=== PATIENT | female | born 1955 | race Caucasian/White ===

== ENCOUNTER 2018-03-25 05:50 | Day surgery (SDC) | payer OTHER ==
--- NOTE | 2018-03-18 11:20 | HP ---
AMENDED REPORT NOW INCLUDES COSIGNER DESIGNATION - ESIGNED BEFORE ADJUSTMENT HISTORY AND PHYSICAL: DATE OF OFFICE VISIT: 03/15/18 DATE OF SURGERY: 03/25/18 SURGEON: Mariaa Meeks MD * (DICTATED BY SAMIRA OG) PROCEDURE: Left knee arthroscopy with partial medial meniscectomy, possible chondroplasty, possible synovectomy. CHIEF COMPLAINT: Left knee pain. HISTORY OF PRESENT ILLNESS: Ms. Thompson is a 63-year-old female with complaints of left knee pain and MRI confirms a medial meniscus tear. She has failed conservative treatment and elected to proceed with left knee arthroscopy with partial medial meniscectomy. PAST MEDICAL HISTORY: Migraines. PAST SURGICAL HISTORY: D and C and colonoscopy. CURRENT MEDICATIONS: 1. Voltaren gel. 2. Ibuprofen. 3. Tramadol. ALLERGIES: CECLOR. FAMILY HISTORY: Prostate cancer, diabetes, CHF, and leukemia. SOCIAL HISTORY: She is a 63-year-old female. She lives alone. She does not smoke or use drugs. Uses occasional alcohol. REVIEW OF SYSTEMS: A complete 14-point review of systems was reviewed with the patient, it was all negative or noncontributory. PHYSICAL EXAMINATION GENERAL: She is well developed, well nourished, in no acute distress. VITAL SIGNS: She stands 5 feet 6 inches tall, weighs 187 pounds. Her blood pressure is 130/80 and her heart rate is 76. HEENT: Normocephalic, atraumatic. NECK: Supple. No palpable lymph nodes. PULMONARY: The lungs are clear to auscultation bilaterally. The abdomen is soft, nontender, nondistended. CARDIO: Regular rate and rhythm. Strong S1, S2. NEUROLOGIC: She is alert and oriented x3. Cranial nerves II through XII are intact. MUSCULOSKELETAL: Left lower extremity skin is intact. There are no open wounds or abrasions. She has a mild joint effusion. She has tenderness over the medial joint line. Positive Gifty's. Negative Carly's. Range of motion 0 to 125 degrees. 2+ dorsalis pedis pulses. Her lower extremity muscle group strengths are intact at 5/5 and she has intact sensation. ASSESSMENT AND PLAN: Ms. Thompson is a 63-year-old female with continued complaints of left knee pain. She has failed conservative management and MRI confirms a medial meniscus tear. She has elected to proceed with left knee arthroscopy with partial medial meniscectomy, possible chondroplasty, and possible synovectomy. The surgery is scheduled for 03/25/[address] Meeks discussed the risks and benefits of the surgery at today's visit and all of her questions were answered. She will follow up with Dr. Meeks in 2 weeks after the surgery. SAMIRA OG [id number]/[facility] #: [id number] MTDD
[~2018-03-25 05:50] MED LIST: Buffered Lidocaine 0.9% SYRIN* 5 ML/SYR SYRINGE INTRADERM ONE
[2018-03-25] MEDS ORDERED: ceFAZolin 2 GM PREMIX (*) 2 GM/50 ML BAG IVPB ONE (05:54)
[2018-03-25] MEDS ORDERED: Famotidine TAB* 20 MG ONE (05:54)
[2018-03-25] MEDS ORDERED: Dexamethasone IV* 4 MG/ML 1 ML (4 MG) ONE (05:54)
[2018-03-25] MEDS ORDERED: Buffered Lidocaine 0.9% SYRIN* 5 ML/SYR SYRINGE ONE (05:54)
[2018-03-25] MEDS ORDERED: Dexamethasone IV* 4 MG/ML 1 ML (4 MG) IV SLOW PU ONE (06:00)
[2018-03-25] MEDS ORDERED: Famotidine TAB* 20 MG PO ONE (06:00)
[2018-03-25] MEDS ORDERED: fentaNYL* 50 MCG/ML 2 ML VIAL (100 MCG VIAL) ONE (07:05)
[2018-03-25] MEDS ORDERED: Midazolam* 1 MG/ML 5 ML VIAL (5 MG) ONE (07:06)
[2018-03-25] MEDS ORDERED: EPINEPHRINE 1 MG/ML 1 ML VIAL ONE (07:13)
[2018-03-25] MEDS ORDERED: methylPREDNISolone ACETATE 80* 80 MG/ML 1 ML VIAL ONE (07:14)
[2018-03-25] MEDS ORDERED: Bupivacaine 0.25% SDV* 30 ML ONE (07:14)
[2018-03-25] MEDS ORDERED: Chloroprocaine 2%* 20 ML VIAL ONE (07:16)
[2018-03-25] MEDS ORDERED: Ondansetron INJ* 2 MG/ML VIAL ONE (07:16)
[2018-03-25] MEDS ORDERED: Ketorolac INJ* 30 MG/ML 1 ML VIAL ONE (07:16)
[2018-03-25] MEDS ORDERED: Propofol* 10 MG/ML 20 ML BTL IV PUSH ONE (07:16)
[2018-03-25] MEDS ORDERED: DiMENhydriNATE IV* 50 MG/ML VIAL IV PUSH PRN (07:57)
[2018-03-25] MEDS ORDERED: Naloxone* 0.4 MG/ML 1 ML VIAL IV PRN (07:57)
[2018-03-25] MEDS ORDERED: oxyCODONE/Acetamin 5/325 MG* TAB PO PRN (07:57)
[2018-03-25] MEDS ORDERED: fentaNYL* 50 MCG/ML 2 ML VIAL (100 MCG VIAL) IV PRN (07:57)
[2018-03-25] MEDS ORDERED: HYDROmorphone INJ* 1 MG/ML CARPUJECT SYRINGE IV PRN (07:57)
[2018-03-25] MEDS ORDERED: Ondansetron INJ* 2 MG/ML VIAL IV PRN (07:57)
[2018-03-25] MEDS ORDERED: oxyCODONE/Acetamin 5/325 MG* TAB ONE (10:47)
[2018-03-25 10:53] VITALS: BP 136/91
--- NOTE | 2018-03-25 22:55 | OP ---
OPERATIVE REPORT: DATE OF OPERATION: 03/25/18 - [facility] DATE OF : 57 SURGEON: Mariaa Meeks MD INSOLE TACK PULLER HAND: SAMIRA Daniels Ms. Euceda did help throughout the procedure with preparation of the leg, wound retraction, manipulation of the knee, and wound closure. ANESTHESIOLOGIST: Dr. Nova. ANESTHESIA: General. PRE-OP DIAGNOSES: Left knee medial meniscal tear, [id number] osteoarthritis. POST-OP DIAGNOSES: Left knee anteromedial meniscal tear, radial tear of the lateral meniscus, moderate degenerative osteoarthritis of the medial and patellofemoral compartments. OPERATIVE PROCEDURE: Left knee arthroscopy with partial medial meniscectomy and partial lateral meniscectomy. COMPLICATIONS: None. ESTIMATED BLOOD LOSS: Less than 25 cc. SPECIMEN: None. BRIEF HISTORY/INDICATIONS: Ms. Thompson is a 63-year-old female who has had acute left knee pain since a traumatic twisting injury in August of 2017. She developed mechanical symptoms and MRI confirmed medial meniscal tear. Due to failure of conservative treatment, she elected to undergo left knee arthroscopy with partial medial meniscectomy, possible chondroplasty, possible synovectomy. Informed consent was obtained from the patient. She understood the risks and benefits of surgery included, but were not limited to bleeding, infection, damage to nearby structures, continued pain, need for further surgery, retear of the meniscus, stroke, heart attack, blood clot, and . She wished to proceed. INTRAOPERATIVE FINDINGS: Intraoperatively, the patient was noted to have grade 3 and 4 Outerbridge cartilage changes in both the medial and patellofemoral compartments. She had a radial tear in the mid portion of the lateral meniscus. She had a large displaced radial tear in the anterior portion of the medial meniscus. DESCRIPTION OF PROCEDURE: Ms. Thompson was identified in the preanesthesia unit. Her left lower extremity was marked as the correct operative side. Informed consent was signed and placed in the chart. The patient was taken to the operating room and placed under anesthesia. Left lower extremity was prepped and draped in the usual sterile fashion. Preop time-out was made to correctly identify the patient's side and site. Appropriate perioperative antibiotics were given within 1 hour of incision. A standard 0.5 cm anterolateral portal incision was made with a 15 blade and carried down through the capsule. Trocar was introduced. As soon as the light and water sources were turned on, there was immediate visualization of the suprapatellar pouch. A tour of the knee joint was performed. Suprapatellar pouch had no obvious abnormalities. Patellofemoral compartments showed some grade 3 and 4 Outerbridge cartilage changes with exposed subchondral bone and cartilage fraying. Medial gutters showed some inflammatory tissue, but no loose body. Medial compartment showed grade 3 and 4 Outerbridge cartilage changes along the medial femoral condyle. There was a displaced anterior and medial meniscus tear, which was radial and involved the white-red and red-red zone. ACL and PCL appeared to be intact. The knee was placed in the figure-of- four position. There was some grade 2 and 3 Outerbridge cartilage changes affecting the lateral tibial plateau. There was a radial tear in the mid portion of the lateral meniscus involving the white-red zone. No obvious loose body or plica in the lateral compartment. Under direct visualization, a medial portal incision was made. Probe was introduced and a second tour of the knee joint was performed. No additional findings were noted. Shaver and radiofrequency ablation wand were used to clear inflammatory soft tissue from the anterior joint line. This greatly improved visualization. A shaver and radiofrequency ablation wand were used to perform partial medial meniscectomy along the anterior radial tear. A smooth border of the meniscus was obtained. Further probing of the meniscus showed no obvious additional tears. Next, the knee was placed in a [id number] position. Straight biter and shaver were used to perform a partial lateral meniscectomy. This was performed in the white-red zone. A smooth border was obtained. The knee was copiously irrigated with sterile saline. All instruments were removed. The incisions were closed using interrupted 3-0 nylon suture. An intra- articular injection of 80 mg of Depo-Medrol and 6 cc of 0.25% Marcaine was placed in the knee joint. Patient's incisions were covered with Xeroform, 4x4s and Webril. The Anatoliy wrap and cold pack were placed over this. Patient's anesthesia was reversed without difficulty. She was taken to the PACU in stable condition. Intended weightbearing will be weightbearing as tolerated. Intended DVT prophylaxis will be aspirin. [id number]/[facility] #: [id number] [facility]
== END 2018-03-25 11:00 | disposition home or self-care (01) ==
LOC: OR 05:50
PROVIDERS: ATTEND Orthopaedic Surgery Adult Reconstructive Orthopaedic Surgery
DX: S83.242A Other tear of medial meniscus, current injury, left knee, initial encounter (principal); S83.282A Other tear of lateral meniscus, current injury, left knee, initial encounter; Y92.9 Unspecified place or not applicable; X50.0XXA Overexertion from strenuous movement or load, initial encounter; G43.909 Migraine, unspecified, not intractable, without status migrainosus
CPT/HCPCS: A9270-GY; J0690; J1040; J1100; J1885; J2250; J2400; J2405; J2704; J3010

== ENCOUNTER 2018-04-04 22:30 | Observation (INO) | payer OTHER ==
[2018-04-04 23:49] LABS: ABS Basophils 0 10^3/ul (0-0.2); ABS Eosinophils 0.2 10^3/ul (0-0.6); ABS Lymphocytes 1.9 10^3/ul (1.0-4.8); ABS Monocytes 0.7 10^3/ul (0-0.8); ABS Neutrophils 6.9 10^3/ul (1.5-7.7); ABS Nucleated RBC 0 10^3/ul; Eosinophil % 1.7 % (0-6); Hematocrit 40 % (35-47); Hemoglobin 13.5 g/dl (12.0-16.0); Lymphocyte % 19.9 % (25-47); Mean Corpuscular HGB Conc 34 g/dl (31-36); Mean Corpuscular Hemoglobin 31 pg (27-31); Mean Corpuscular Volume 91 fL (80-97); Nucleated Red Blood Cells % 0; Platelet Count 208 10^3/ul (150-450); Red Blood Count 4.41 10^6/ul (4.0-5.4); Red Cell Distribution Width 13 % (10.5-15); White Blood Count 9.8 10^3/ul (3.5-10.8)
[2018-04-04 23:57] LABS: INR 0.91 (0.77-1.02)
[2018-04-05 00:15] LABS: EGFR Non-African American 67.8 (>60)
[2018-04-05] MEDS ORDERED: Iohexol 350* (CONTRAST) 500 ML MDV IV ONE (01:08)
[2018-04-05] MEDS ORDERED: Morphine VIAL* 4 MG/ML VIAL (1 ml vial) IV ONE ×2 (01:17→01:18)
[2018-04-05] MEDS ORDERED: Ondansetron ODT TAB* 4 MG ONE (01:17)
[2018-04-05] MEDS ORDERED: Ondansetron TAB* 4 MG PO ONE (01:17)
[2018-04-05] MEDS ORDERED: Enoxaparin(*) 100 MG/ML SYR SUBCUT ONE (02:05)
--- NOTE | 2018-04-05 02:48 | ED ---
Isa Lucas Rebecca, scribed for Juanita Chiu MD on 04/04/18 at 2253 . HPI Chest Pain - HPI Summary HPI Summary: Pt is a 63 y/o F who presents to ED c/o CP. Pain began yesterday afternoon and has been intermittent since onset. Pain is located diffusely throughout the chest, worse on the left side, and described as tightness and uncomfortable. Pain is currently mild, ranked 3/10. Sx aggravated by deep breaths, alleviated by nothing. Additionally c/o subjective fever. Denies cough, SOB. PSHx knee surgery [address] Meeks. - History of Current Complaint Chief Complaint: EDChestPainROMI Time Seen by Provider: 04/04/18 22:48 Hx Obtained From: Patient Onset/Duration: Started Days Ago - Yesterday, Still Present Timing: Intermittent Current Severity: Mild Pain Intensity: 3 Pain Scale Used: 0-10 Numeric Chest Pain Location: Diffuse - Worse on the left side Character: Tightness, Other: - Uncomfortable Aggravating Factor(s): Deep Breaths Alleviating Factor(s): Nothing Associated Signs and Symptoms: Positive: Fever. Negative: Shortness of Breath, Cough - Allergy/Home Medications Allergies/Adverse Reactions: Allergies Allergy/AdvReac Type Severity Reaction Status Date / Time Adhesive Tape Allergy Rash Verified 04/04/18 22:43 amoxicillin [From Augmentin] Allergy GI Upset Verified 04/04/18 22:43 cefaclor [From Ceclor] Allergy Hives Verified 04/04/18 22:43 clavulanic acid Allergy GI Upset Verified 04/04/18 22:43 [From Augmentin] Home Medications: Home Medications Aspirin 325 MG TAB* 1 tab PO DAILY 04/04/18 [History Confirmed 04/04/18] Percocet 5-325 mg Tablet 1 tab PO Q6HR PRN 04/04/18 [History Confirmed 04/04/18] PMH/Surg Hx/FS Hx/Imm Hx Endocrine/Hematology History: Denies: Hx Diabetes Cardiovascular History: Denies: Hx Hypertension, Hx Pacemaker/ICD History: Denies: Hx Renal Disease Musculoskeletal History: Reports: Hx Arthritis - KNEES, Other Musculoskeletal History - LEFT KNEE PAIN Sensory History: Reports: Hx Contacts or Glasses - GLASSES Denies: Hx Hearing Aid Opthamlomology History: Reports: Hx Contacts or Glasses - GLASSES Neurological History: Reports: Hx Migraine - HISTORY OF Psychiatric History: Denies: Hx Panic Disorder - Cancer History Hx Chemotherapy: No Hx Radiation Therapy: No - Surgical History Surgery Procedure, Year, and Place: D&C 05/2015 Hx Anesthesia Reactions: No Infectious Disease History: No Infectious Disease History: Denies: Hx Clostridium Difficile, Hx Hepatitis, Hx Human Immunodeficiency Virus (HIV), Hx of Known/Suspected MRSA, Traveled Outside the [place] in Last 30 Days - Family History Known Family History: Positive: Diabetes, Other - Prostate CA, CHF - Social History Alcohol Use: Occasionally Substance Use Type: Reports: None Smoking Status (MU): Never Smoked Tobacco Have You Smoked in the Last Year: No Review of Systems Positive: Fever Positive: Chest Pain Negative: Shortness Of Breath, Cough All Other Systems Reviewed And Are Negative: Yes Physical Exam - Summary Physical Exam Summary: VITAL SIGNS: Reviewed. GENERAL: ~Patient is a well-developed and nourished female who is lying comfortable in the stretcher. Patient is not in any acute respiratory distress. HEAD AND FACE: No signs of trauma. No ecchymosis, hematomas or skull depressions. No sinus tenderness. EYES: PERRLA, EOMI x 2, No injected conjunctiva, no nystagmus. EARS: Hearing grossly intact. Ear canals and tympanic membranes are within normal limits. MOUTH: Oropharynx within normal limits. NECK: Supple, trachea is midline, no adenopathy, no JVD, no carotid bruit, no c- spine tenderness, neck with full ROM. CHEST: Symmetric, no tenderness at palpation LUNGS: Clear to auscultation bilaterally. No wheezing or crackles. CVS: Regular rate and rhythm, S1 and S2 present, no murmurs or gallops appreciated. ABDOMEN: Soft, non-tender. No signs of distention. No rebound no guarding, and no masses palpated. Bowel sounds are normal. EXTREMITIES: FROM in all major joints, no edema, no cyanosis or clubbing. NEURO: Alert and oriented x 3. No acute neurological deficits. Speech is normal and follows commands. SKIN: Dry and warm Triage Information Reviewed: Yes Vital Signs On Initial Exam: Initial Vitals Temp Pulse Resp BP Pulse Ox 97.3 F 81 18 159/78 97 04/04/18 22:40 04/04/18 22:40 04/04/18 22:40 04/04/18 22:40 04/04/18 22:40 Vital Signs Reviewed: Yes Diagnostics - Vital Signs Vital Signs Temp Pulse Resp BP Pulse Ox 04/04/18 22:40 97.3 F 81 18 159/78 97 - Laboratory Result Diagrams: 04/04/18 23:41 04/04/18 23:40 Lab Statement: Any lab studies that have been ordered have been reviewed, and results considered in the medical decision making process. - Radiology CXR Radiology Interpretation Completed By: ED Physician - Elevation of the left hemidiaphragm. Pending official report. - CT CTA Chest CT Interpretation: Positive (See Comments) - Moderate-sized bilateral pulmonary emboli with suspected lingular infarct, but no saddle embolism. ED physician reviewed this radiology report. Pending official report. CT Interpretation Completed By: Radiologist - EKG 2228 Cardiac Rate: NL - 88 bpm EKG Rhythm: Sinus Rhythm EKG Interpretation: Normal axis. Normal interval. No ischemic changes. Re-Evaluation - Re-Evaluation First Eval Re-Evaluation Time: 00:20 Comment: Explained that the pt will be getting a CTA done. Second Eval Re-Evaluation Time: 02:07 Change: Improved Comment: Discussed CTA results with the pt. Symptoms improved with the pain medication. Chest Pain Course/Dx - Course Assessment/Plan: Pt is a 63 y/o F who presents to ED c/o CP since yesterday afternoon, intermittent since onset. Pain is located diffusely throughout the chest, worse on the left side, and described as tightness. Pain is currently mild, ranked 3/10. Sx aggravated by deep breaths, alleviated by nothing. Additionally c/o subjective fever. Denies cough, SOB. PSHx knee surgery [address] Meeks. Blood work was done. D-dimer of 835. CXR reveals elevation of the lef themidiaphragm. CTA chest reveals bilateral PE. EKG is sinus rhythm with no ischemic changes. In the ED course, pt received Lovenox, morphine and zofran which improved symptoms. Discussed care of pt with Dr. Paul who accepts pt for admission. Pt will be admitted with Dx of pulmonary embolism. Allergies noted. - Diagnoses Provider Diagnoses: Pulmonary embolism - Provider Notifications Discussed Care Of Patient With: Radiology Time Discussed With Above Provider: 02:04 Instructed by Provider To: Other - Reporting radiological findings of PE. Discussed care of pt with Dr. Paul at 0212 who accepts pt for admission. Discharge - Sign-Out/Discharge Documenting (check all that apply): Discharge/Admit/Transfer - Admit - Discharge Plan Condition: Fair Disposition: ADMITTED TO [facility] Referrals: No Primary Care Phys,NOPCP [Medical Doctor] - The documentation as recorded by the Isa mckenna Rebecca accurately reflects the service I personally performed and the decisions made by , Juanita Chiu MD.
[2018-04-05] MEDS ORDERED: oxyCODONE/Acetamin 5/325 MG* TAB PO PRN (03:32)
[2018-04-05] MEDS ORDERED: ONDANSETRON IV PRN (03:32)
[2018-04-05] MEDS ORDERED: Morphine VIAL* 4 MG/ML VIAL (1 ml vial) IV PRN (03:32)
[2018-04-05] MEDS ORDERED: Magnesium Hydroxide LIQ* 30 ML UDC PO PRN (03:32)
[2018-04-05] MEDS ORDERED: Senna TAB PO PRN (03:32)
[2018-04-05] MEDS ORDERED: Al Hydrox/Mg Hydrox/Simet LIQ* 30 ML UDC PO PRN (03:32)
[2018-04-05] MEDS ORDERED: Docusate CAP* 100 MG PO PRN (03:32)
[2018-04-05] MEDS: Acetaminophen TAB* 325 MG PO PRN ×2 (04:34→11:01)
--- NOTE | 2018-04-05 06:44 | HP ---
HISTORY AND PHYSICAL: DATE OF ADMISSION: 04/05/18 TIME OF EVALUATION: 0300 PRIMARY CARE PHYSICIAN: CAIO Osborn. CHIEF COMPLAINT: Chest pain and shortness of breath. HISTORY OF PRESENT ILLNESS: This is a 63-year-old female who recently underwent knee arthroscopy on 03/25/18. She was sent home on a full dose of aspirin for prophylaxis. 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 She states that she was getting around and not having issues with immobility when she states on the afternoon of 04/03/18 she began having chest pain. Last evening on 04/04/18 she began having chest pain and shortness of breath. Initially, she thought it was heartburn, but then was concerned that she was having a heart attack. She was having a pleuritic pain and persistent pain on the left side. Last night, she broke up into night sweats and she has been having some diarrhea. No nausea or vomiting. No abdominal pain or urinary symptoms. No history of blood clot in the past. In the emergency room, the patient had labs and imaging. She was found to have bilateral pulmonary embolism. She was given Lovenox 90 mg subcu, morphine 4 mg and Zofran 8 mg and was referred to the hospitalist service for further evaluation. PAST MEDICAL HISTORY: 1. Arthritis, history of left knee arthroscopy with partial medial meniscectomy and partial lateral meniscectomy on 03/25/18. 2. History of D and C. MEDICATIONS: 1. Ibuprofen as needed. 2. Tylenol as needed. 3. Percocet as needed. 4. Aspirin 325 mg daily. 5. Tramadol 50 mg q.6 hours as needed. ALLERGIES: ADHESIVE TAPE, AMOXICILLIN, CEFACLOR, and CLAVULANIC ACID. FAMILY HISTORY: No family history of blood clotting disorder. SOCIAL HISTORY: She lives alone, but her significant other, Devin Madison visits her 4 to 5 days of the week. She denies smoking. She drinks 2 to 3 per week wine. Her healthcare proxy are her two daughters. CODE STATUS: Full code. REVIEW OF SYSTEMS: A 14-point review of systems as mentioned in the HPI, otherwise negative. PHYSICAL EXAMINATION GENERAL: No acute distress, resting comfortably with her significant other at the bedside. VITAL SIGNS: Temp 97.3, pulse rate 77, respiratory rate 18, oxygen saturation 93 % on room air, blood pressure 120/73. HEENT: Head: Normocephalic. Pupils equal and reactive. Anicteric. Oropharynx: Mucous membranes are moist. NECK: Supple. No lymphadenopathy. No nuchal rigidity. RESPIRATORY: Shallow breath sounds, diminished. No wheezes, rhonchi or rales. CARDIAC: Regular rate and rhythm. Systolic murmur most prominent at the right sternal base. ABDOMEN: Soft, nontender, nondistended. EXTREMITIES: Some subtle swelling in her left lower extremity. She has a bandage on her left knee. There is no surrounding erythema or drainage. Pulses bilaterally +1. NEUROLOGIC: Alert and oriented x3. No gross focal neurologic deficits. LABORATORY DATA: White count 9.8, hemoglobin 13.5, hematocrit 40, platelets 208, INR 0.91, D-dimer 835. Sodium 141, potassium 4.3, chloride 108, bicarb 27 , BUN 16, creatinine 0.85, glucose 101, lactic acid 0.7, troponin 0. RADIOGRAPHIC DATA: There are moderate sized pulmonary emboli in the left lower lobe and lingula in the right lower lobe. There is no saddle embolism. There is no aortic dissection or aneurysm. Heart size is normal. Lingular ground- glass consolidation is suspicious for infarct, mild bilateral dependent atelectasis also noted, no fractures are identified. The upper abdominal structures are normal. EKG shows normal sinus rhythm. ASSESSMENT: This is a 63-year-old female who underwent left knee arthroscopy on the 03/25/18, who presents to the emergency room with chest pain and shortness of breath, found to have bilateral pulmonary emboli. 1. Bilateral pulmonary emboli. Assessment: She is hemodynamically stable on room air, but significant clot burden. She has been started on Lovenox in the emergency room. Plan: We will continue her on Lovenox for now. We will order an ultrasound and echocardiogram. This is a provoked pulmonary embolus in the setting of her recent surgery. We will continue with pain control as well. Also, order a ultrasound Doppler of her lower extremities. 2. FEN. Regular diet. 3. DVT prophylaxis. The patient is on Lovenox. 4. Code status: Full code. TIME SPENT: Greater than 45 minutes spent doing the history and physical, more than half the time was spent in direct patient contact. [id number]/[facility] #: [id number] YNA
--- NOTE | 2018-04-05 07:31 | RAD ---
INDICATION: Chest pain. COMPARISON: There are no prior studies available for comparison. TECHNIQUE: A portable view of the chest was obtained. FINDINGS: The heart is within normal limits in size. There is elevation of the left hemidiaphragm. The lungs are grossly clear. No pleural effusion is seen. IMPRESSION: 1. NO EVIDENCE FOR ACUTE FINDING. 2. ELEVATED LEFT HEMIDIAPHRAGM.
--- NOTE | 2018-04-05 08:02 | RAD ---
INDICATION: Chest pain. Short of breath. Evaluate for pulmonary embolus. COMPARISON: Chest x-ray same date TECHNIQUE: Axial source images were obtained from the thoracic inlet to the hemidiaphragms following administration of [address] angiographic technique was utilized. Coronal and sagittal reconstructed images were acquired. CHEST FINDINGS: Neck/thyroid: The visualized neck to include the thyroid appear normal. Chest wall: There are no acute abnormalities of the bony thorax or chest wall. There is no supraclavicular, infraclavicular, or axillary lymphadenopathy. Lungs : There are no pulmonary parenchymal masses or infiltrates. There is mild gravity dependent atelectasis in the lung bases. The pulmonary interstitium appears normal. There are no endobronchial lesions. Cardiomediastinal structures: There are third order and distal bilateral pulmonary emboli. The heart is normal in size. There is no pericardial effusion. There is no evidence of aortic aneurysm or dissection. There is no mediastinal or hilar adenopathy. The esophagus appears normal. Pleura : There are no pleural-based masses or effusions. Other: None. IMPRESSION: ACUTE BILATERAL PULMONARY EMBOLI.
--- NOTE | 2018-04-05 11:12 | ECHO ---
Patient: JAYDE VALDOVINOS [place] Rec#: [id number] : 1955 Date: 04/05/2018 Age: 63y Height: 167.64 cm / 66.0 in Weight: 86.18 kg / 189.9 lbs Sex: F BSA: 1.96 Room#: [facility] Admit Date#: 04/05/2018 Type: Inpatient Referring: Nichole Paul Reading: Manuel Saab MD Diversional Therapist'S Assistant: Anyi Birmingham RDCS CC: Venita Hicks NP Transthoracic Echocardiogram Indication: Bilateral pulmonary emboli BP: 135/87 HR: 75 Rhythm: NSR Findings History: Arthritis, s/p left knee arthroscopy 1 week ago for torn meniscus. Technical Comments: The study quality is fair. Completed at 5. Left Ventricle: The left ventricular chamber size is decreased. Mild to moderate concentric left ventricular hypertrophy is observed. Global left ventricular wall motion and contractility are within normal limits. There is normal left ventricular systolic function. The estimated ejection fraction is 60-65%. Abnormal left ventricular diastolic function is observed. Abnormal left ventricular diastolic filling is observed, consistent with impaired relaxation. Left Atrium: The left atrium is moderately dilated. Right Ventricle: Moderator Band present. The right ventricular cavity size is normal. The right ventricular global systolic function is normal. Right Atrium: The right atrium is mild to moderately dilated. There is evidence of an atrial septal aneurysm. Aortic Valve: The aortic valve is trileaflet. There is no evidence of aortic valve thickening. There is mild aortic regurgitation. There is no evidence of aortic stenosis. Mitral Valve: The mitral valve leaflets are mildly thickened. There is trace to mild mitral regurgitation. There is no evidence of mitral stenosis. Tricuspid Valve: The tricuspid valve leaflets are normal. There is a physiologic tricuspid regurgitation. Unable to estimate the right ventricular systolic pressure. There is no tricuspid stenosis. Pulmonic Valve: The pulmonic valve appears normal. There is a trace pulmonic regurgitation. There is no pulmonic stenosis. Pericardium: There is no significant pericardial effusion. Aorta: There is mild dilatation of the ascending aorta. There is no dilatation of the aortic arch. The aortic root is normal in size. Pulmonary Artery: The main pulmonary artery is not well visualized. Venous: The inferior vena cava is dilated. There is a greater than 50% respiratory change in the inferior vena cava dimension. Conclusions Global left ventricular wall motion and contractility are within normal limits. There is normal left ventricular systolic function. The estimated ejection fraction is 60-65%. The right ventricular global systolic function is normal. There is mild aortic regurgitation. There is trace to mild mitral regurgitation. There is a physiologic tricuspid regurgitation. Unable to estimate the right ventricular systolic pressure. There is no significant pericardial effusion. Measurements Name Value Normal Range RVIDd (AP) 2D 2.9 cm (0.9 - 2.6) RVDdMajor (2D) 3.8 cm (2.2 - 4.4) RAd ISD 4CH 5.4 cm (3.4 - 4.9) RA (A4C)W 4 cm (2.9 - 4.6) IVSd (2D) 1.2 cm (0.6 - 1) LVPWd (2D) 1.4 cm (0.6 - 1) LVIDd (2D) 3.5 cm (3.6 - 5.4) LVIDs (2D) 2.2 cm - LV FS (2D) 35 % (25 - 45) EF Teichholz (2D) 65 % - Aortic Annulus 2 cm (1.4 - 2.6) Ao root diameter (2D) 3.1 cm (2.1 - 3.5) Ascending Ao 3.7 cm (2.1 - 3.4) Aortic arch 3.1 cm (1.8 - 3.4) LA dimension (AP) 2D 4.1 cm (2.3 - 3.8) LAd ISD 4CH 5.4 cm (2.9 - 5.3) LA ISD 4CH W 4.7 cm (2.5 - 4.5) Name Value Normal Range LA ESV SP 4CH (A/L) 74 ml - LA ESV SP 2CH (A/L) 102 ml - LA ESV BP (A/L) 92 ml - LA ESV BP (A/L) index 47 ml/m2 - LA ESV SP 4CH (MOD) 68 ml - LA ESV SP 2CH (MOD) 99 ml - Name Value Normal Range MV E-wave Vmax 0.65 m/sec - MV deceleration time 240.1 msec - MV A-wave Vmax 0.95 m/sec - MV E:A ratio 0.69 ratio - LV septal e' Vmax 0.08 m/sec - LV lateral e' Vmax 0.09 m/sec - LV E:e' septal ratio 8.13 ratio - LV E:e' lateral ratio 7.22 ratio - Name Value Normal Range AV Vmax 1.9 m/sec - AV VTI 36.7 cm - AV peak gradient 14.43 mmHg - AV mean gradient 6.93 mmHg - LVOT Vmax 1.47 m/sec - LVOT VTI 32.1 cm - LVOT peak gradient 8.71 mmHg - LVOT mean gradient 5.67 mmHg - AR PHT 574 msec - AR peak gradient 69.33 mmHg - HUAN Vmax 1 m/sec - Name Value Normal Range IVC diameter 2.3 cm - Name Value Normal Range PV Vmax 0.97 m/sec - PV peak gradient 3.83 mmHg -
[2018-04-05 12:14] VITALS: BP 133/71
--- NOTE | 2018-04-05 12:31 | RAD ---
INDICATION: New diagnosis of pulmonary embolism. LEFT lower extremity edema. LEFT knee surgery March 25, 2018. COMPARISON: No relevant prior exams available on the [facility] PACS for comparison. TECHNIQUE: Jenkins scale, color Doppler, and spectral analysis of the deep veins of the BILATERAL lower extremities. Vessel compression, phasicity, and augmentation assessed. REPORT: The RIGHT common femoral, great saphenous, profunda femoral, femoral, popliteal, peroneal, and posterior tibial veins are patent. The LEFT common femoral, great saphenous, profunda femoral, femoral, popliteal, peroneal, and posterior tibial veins are patent. Mild subcutaneous edema at the level of the LEFT knee and lower leg. IMPRESSION: No evidence for RIGHT or LEFT lower extremity DVT.
[2018-04-05] MEDS ORDERED: Enoxaparin(*) 100 MG/ML SYR SUBCUT SCH (14:00)
--- NOTE | 2018-04-05 15:58 | PN ---
Subjective Date of Service: 04/05/18 Interval History: . Patient reports she feels much better. Denies SOB. Reports the pleuritic pain she felt yesterday is "much, much better" she reports she still gets occasional "jabs of pain" to her side but otherwise she feels that the pain has resolved. Denies palpitations. No Nausea. Reports she has been ambulating around the unit and feels that she is at her baseline. We discussed at length different anticoagulation options and the risks of bleeding and other side effects. The patient states understanding and is choosing Xarelto - dosage and timing was reviewed Objective Active Medications: Acetaminophen (Tylenol Tab*) 650 mg PO Q4H PRN PRN Reason: FEVER/PAIN Last Admin: 04/05/18 11:01 Dose: 650 mg Al Hydrox/Mg Hydrox/Simethicone (Maalox Plus*) 30 ml PO Q6H PRN PRN Reason: INDIGESTION Docusate Sodium (Colace Cap*) 100 mg PO BID PRN PRN Reason: CONSTIPATION Enoxaparin Sodium (Lovenox(*)) 90 mg SUBCUT Q12H CINDY Last Admin: 04/05/18 15:29 Dose: 90 mg Magnesium Hydroxide (Milk Of Magnesia Liq*) 30 ml PO Q4H PRN PRN Reason: CONSTIPATION Morphine Sulfate (Morphine Vial*) 2 mg IV Q4H PRN PRN Reason: PAIN Ondansetron HCl (Zofran Inj*) 4 mg IV Q4H PRN PRN Reason: NAUSEA/VOMITING Oxycodone/Acetaminophen (Percocet 5/325 Tab*) 1 tab PO Q4H PRN PRN Reason: Pain Last Admin: 04/05/18 15:20 Dose: 1 tab Senna (Senokot Tab*) 1 tab PO BID PRN PRN Reason: CONSTIPATION Vital Signs - 8 hr 04/05/18 04/05/18 12:13 15:20 Temperature 99.6 F Pulse Rate 82 Respiratory 20 20 Rate Blood Pressure 133/71 (mmHg) O2 Sat by Pulse 95 Oximetry Oxygen Devices in Use Now: Nasal Cannula Appearance: 63 yo well developed female sitting up in bed in NAD A+O x3 Eyes: No Scleral Icterus, PERRLA Ears/Nose/Mouth/Throat: NL Teeth, Lips, Gums, Mucous Membranes Moist Neck: NL Appearance and Movements; NL JVP Respiratory: Symmetrical Chest Expansion and Respiratory Effort, Clear to Auscultation Cardiovascular: NL Sounds; No Murmurs; No JVD, RRR, No Edema Abdominal: NL Sounds; No Tenderness; No Distention Extremities: No Edema Skin: No Rash or Ulcers, No Nodules or Sclerosis Neurological: Alert and Oriented x 3, NL Sensation, NL Gait, NL Muscle Strength and Tone Lines/Tubes/Other Access: Clean, Dry and Intact Peripheral IV Nutrition: Taking PO's Result Diagrams: 04/04/18 23:41 04/04/18 23:40 Assess/Plan/Problems-Billing Assessment: 63 yo female who underwent left knee arthroscopy on 03/05/18 who presents in the ER with CP and SOB, found to have bilateral pulmonary emboli. - Patient Problems (1) Pulmonary embolism, bilateral Comment: - CTA showing bilateral PEs started on lovenox 1mg/kg with plan to convert to Xarelto - Discussed risks of xarelto with patient and she states understanding (2) DVT prophylaxis Comment: lovenox Status and Disposition: OBV. Plan for DC home today. F/U with PCP and Ortho
--- NOTE | 2018-04-06 11:59 | DS ---
CC: Venita Hicks NP * DISCHARGE SUMMARY: DATE OF ADMISSION: 04/05/18 DATE OF DISCHARGE: 04/05/18. HOSPITAL STATUS: Observation. PROVIDER: Sulma Rodrigez NP. ATTENDING PHYSICIAN: Dr. Lara * (report dictated by Sulma Rodrigez NP). PRIMARY CARE PROVIDER: Venita Hicks NP. ORTHOPEDIC SURGEON: Dr. Meeks. DISCHARGE DIAGNOSIS: Bilateral pulmonary emboli, provoked. SECONDARY DIAGNOSES: 1. Obesity. 2. Arthritis, status post left knee arthroscopy with partial medial meniscectomy and partial lateral meniscectomy on 03/25/18. DISCHARGE MEDICATIONS: 1. Acetaminophen 650 mg p.o. q.6 hours p.r.n. 2. Percocet 5/325 mg 1 tab p.o. q.6 hours p.r.n. 3. Xarelto 50 mg p.o. q.12 hours x21 days then 20 mg p.o. daily. HISTORY OF PRESENT ILLNESS AND HOSPITAL COURSE: Please see history and physical by Dr. Franklin for full admission details, but in summary, this is a 63- year-old female, who underwent a knee arthroscopy on 03/25/18 and was sent home on a full strength aspirin for prophylaxis. 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 She reports on 04/03/18, she began having chest discomfort and last evening on 04/04/18, she began having chest pain with shortness of breath. She initially thought that it was heartburn and then she was having a heart attack and came to the emergency department for further assessment. In the emergency department she was noted to have D-dimer of 835 and a flat troponin of 0.00. She then underwent a CTA of the chest/thorax which showed acute bilateral pulmonary emboli. Per the CTA, it reads "there are third order and distal bilateral pulmonary emboli." Patient was admitted to the telemetry unit. She was started on Lovenox at 1 mg/kg q.12 hours on admission. She underwent a transthoracic echocardiogram, which showed no cor pulmonale with "right ventricular global systolic function is normal. Ejection fraction is 65%. There was normal left ventricular systolic function. Global left ventricular wall motion contractility within normal limits. There is mild aortic regurgitation. There is [id number] mitral regurgitation. There is physiologic tricuspid regurgitation. There is no significant paracardial effusion." The patient has done well throughout her observation status. She was monitored on telemetry. She has not had any noted tachycardia at any time during her ER or hospital admission. No hypoxia at any point. Patient has remained hemodynamically stable with no noted low blood pressure. The plan will be to send the patient home on Xarelto. A long conversation was had with the patient and the boyfriend who was at the bedside. We discussed multiple different kinds of anticoagulation and the benefits and risks involved. The bleeding risks and adverse side effects were discussed with the patient. The patient has chosen Xarelto as the agent. She has no medical contraindications to start this medication. She denies any history of cancer, GI bleed, intracranial bleed. It was discussed with the patient that there is no reversal agent for this medication if she were to have any acute bleeding she should immediately come to the emergency department and have supportive treatment only. Patient states understanding and agrees to the plan to move forward with the anticoagulation. This is a provoked pulmonary embolism secondary to the knee arthroscopy, 3 months of anticoagulation is recommended providing the provoking risk factor is no longer present. We will discuss with the patient that when she is to switch to the 20 mg p.o. daily after the initial 21 days of 15 mg p.o. b.i.d. that she will need to get this prescription from her primary care provider. Patient should have a follow up CBC and CMP in [address] Meeks saw the patient on the unit this evening and removed the sutures from her surgical incision. She reports that it appears to be healing well. The patient was also instructed to not take NSAIDs or aspirin while taking the Xarelto. DISCHARGE PLAN: 1. Follow up with Venita Hicks within 1 to 4 days. 2. Follow up with Dr. Meeks as previously discussed. 3. CBC, CMP in 1 to 2 weeks. The was discussed with the patient, if she has any concerning symptoms to return to the emergency department for further evaluation. The patient is stable for discharge to home. TIME SPENT: Approximately 60 minutes was spent on this discharge. SULMA RODRIGEZ, FISHING BOAT CAPTAIN [id number]/[facility] #: [id number] YAN
== END 2018-04-05 18:20 | disposition home or self-care (01) ==
LOC: ED 22:30 → MEDTELE 04-05 03:44
PROVIDERS: ADMIT Pediatrics; ATTEND Internal Medicine
DX: I26.99 Other pulmonary embolism without acute cor pulmonale (principal); E66.9 Obesity, unspecified; M17.12 Unilateral primary osteoarthritis, left knee; Z79.899 Other long term (current) drug therapy; Z79.01 Long term (current) use of anticoagulants; Z88.0 Allergy status to penicillin; Z88.1 Allergy status to other antibiotic agents
CPT/HCPCS: 36415; 71045; 71275; 80053; 83605; 83735; 84484; 85025; 85379; 85610; 85730; 93005; 93306; 93970; 96372; 96375; 99283; A9270-GY; G0378; J1650; J2270; Q9967

== ENCOUNTER 2018-08-12 07:04 | Day surgery (SDC) | payer OTHER ==
[2018-08-12] MEDS ORDERED: ceFAZolin 2 GM in NS PREMIX(*) 2 GM/100 ML BAG IVPB ONE (07:20)
[2018-08-12] MEDS ORDERED: Midazolam* 1 MG/ML 5 ML VIAL (5 MG) ONE (08:44)
[2018-08-12] MEDS ORDERED: fentaNYL* 50 MCG/ML 2 ML VIAL (100 MCG VIAL) ONE (08:44)
[2018-08-12] MEDS ORDERED: Dexamethasone IV* 4 MG/ML 1 ML (4 MG) ONE (10:08)
[2018-08-12] MEDS ORDERED: Ondansetron INJ* 2 MG/ML VIAL ONE (10:08)
[2018-08-12] MEDS ORDERED: Lidocaine 2% PF * 5 ML VIAL ONE (10:08)
[2018-08-12] MEDS ORDERED: Propofol* 10 MG/ML 20 ML BTL IV PUSH ONE (10:08)
[2018-08-12] MEDS ORDERED: Metoclopramide IV* 5 MG/ML 2 ML VIAL IV PRN (10:22)
[2018-08-12] MEDS ORDERED: fentaNYL* 50 MCG/ML 2 ML VIAL (100 MCG VIAL) IV PRN (10:22)
[2018-08-12] MEDS ORDERED: HYDROcodone/ACETAMIN 5-325 MG* 1 TAB PO PRN (10:22)
[2018-08-12] MEDS ORDERED: Naloxone* 0.4 MG/ML 1 ML VIAL IV PRN (10:22)
[2018-08-12] MEDS ORDERED: PROCHLORPERAZINE INJ 5 MG/ML 2 ML VIAL IV PRN (10:22)
--- NOTE | 2018-08-12 10:36 | OP ---
Operative Report - Blank - Operative Report Date of Operation: 08/12/18 Note: PATIENT: Briana Thompson DATE OF : 1955 DATE OF SURGERY: 08/12/2018 SURGEON: Rolly More MD CHRONIC CONDITION NURSE: SAMIRA Sethi, whos assistance was necessary for positioning, retraction, help with instrumentation, and closure. ANESTHESIOLOGIST: Dr. Huber PREOPERATIVE DIAGNOSIS: Right foot hallux rigidus POSTOPERATIVE DIAGNOSIS: Right foot hallux rigidus OPERATION: Right foot first metatarsophalangeal joint cheilectomy with placement of Cartiva implant ANESTHESIA: LMA IMPLANTS: 10mm Cartiva implant TOURNIQUET TIME: Less than one hour with an ankle Esmarch tourniquet. SPECIMENS: None ESTIMATED BLOOD LOSS: Minimal COMPLICATIONS: none STATUS: Stable from the operating room to the recovery room and then home. INDICATIONS FOR PROCEDURE: Briana has had persistent pain from hallux rigidus refractory to non-operative treatment. Both operative and non-operative treatment alternatives were reviewed. Further, the nature and risks of surgery were reviewed in careful detail, in the office as well as the pre-operative holding area. Our discussions regarding the risks of surgery included, but were not limited to, infection, wound problems, nerve injury, neuroma, RSD, persistent symptoms, blood clot, fracture, need for further surgery, need for fusion, adverse reaction to the implant, failure of the surgery, and even the remote chance of catastrophic complication, including loss of limb. DESCRIPTION OF PROCEDURE: The patient was seen in the preoperative holding unit and informed written consent was obtained. The appropriate extremity was marked. The patient was then brought to the operating room and carefully positioned on the operating room table. Anesthesia was induced. All bony prominences were padded with great care. A chlorhexidine based pre-scrub was performed followed by a chloraprep prep and drape in standard sterile fashion. A surgical safety pause was then conducted in which we confirmed the appropriate patient, extremity, planned procedure, availability of equipment, indication and administration of prophylactic antibiotics, and DVT prophylaxis in the form of a compression boot on the non-surgical extremity. I began by placing a sterile calf tourniquet and then performed an Esmarch exsanguination of the limb and inflated the tourniquet. I then made an incision dorsally overlying the first MTP joint. I carried the dissection down through the soft tissue and mobilized the EHL tendon laterally. I then came sharply down to the level of the first MTP joint. I released around the medial aspects and lateral aspects of the joint to expose the metatarsal head and the base of the proximal phalanx. We had excellent visualization. There were arthritic changes present. Osteophytes that were present on the dorsal aspect of the proximal phalanx and at the dorsal aspect of the metatarsal head were removed with a rongeur. Care was taken to preserve adequate dorsal bone stock for insertion and stability of the implant. The MTP joint was then checked for range of motion and showed improvement over what was present preoperatively. The MTP joint was then plantar flexed to allow for visualization of the entirety of the first metatarsal head. The sizing/aiming guide for the implant were then centered on the metatarsal head. The guidewire was then advanced into the metatarsal head through the cannulation of the aiming guide. The aiming guide was then removed. Placement of the guidewire was confirmed. The cannulated drill was then used to drill the cavity for the implant. This was done with cold irrigation. The drill was advanced until the guard was flush with the surrounding metatarsal head surface. The drill and guidewire were then removed. Irrigation was performed followed by removal of any bone debris. The implant was then removed from the sterile packaging using smooth forceps. The introducer was then moistened with sterile saline. The implant was then inserted into the introducer tube at the wider end. The flat end of the implant was facing downwards during introduction. Using the small flat end of the placer , the implant was then brought to the distal end of the introducer tube. This was confirmed visually. The distal end of the introducer tube was then placed against the recipient site cavity. The placer was then carefully advanced into the introducer tube to deliver the implant into the metatarsal head recipient cavity. The introducer tube was then removed and it was confirmed that the implant sat approximately 1-2 mm proud from the surrounding metatarsal head. The joint was then copiously irrigated and all remaining debris removed. The joint was then reduced and range of motion testing was performed showing an improvement from what was seen preoperatively. The wounds were copiously irrigated and meticulously closed in layers utilizing 3-0 Monocryl and 3-0 nylon. A sterile dressing was then applied. The patient was then awakened from anesthesia and transferred to the recovery room in stable condition. There were no complications. All needle and sponge counts were correct at the end of the case. ATTESTATION: I attest I was present and scrubbed and performed the critical portions of the procedure myself. POSTOPERATIVE PLAN: The patient will remain heel weightbearing in a postop shoe for anticipated duration of 2 weeks. Followup will be in 2 weeks for likely suture removal and Steri-Strip application.
[2018-08-12] MEDS ORDERED: HYDROcodone/ACETAMIN 5-325 MG* 1 TAB ONE (11:11)
[2018-08-12 11:28] VITALS: BP 118/81
== END 2018-08-12 11:42 | disposition home or self-care (01) ==
LOC: OR 07:04
PROVIDERS: ATTEND Orthopaedic Surgery
DX: M20.21 Hallux rigidus, right foot (principal); Z86.711 Personal history of pulmonary embolism; Z79.01 Long term (current) use of anticoagulants; M19.90 Unspecified osteoarthritis, unspecified site; E66.9 Obesity, unspecified
CPT/HCPCS: C1776; J0690; J1100; J2250; J2405; J2704; J3010

== ENCOUNTER 2019-11-04 07:03 | Emergency (ER) | payer OTHER ==
--- OUTSIDE RECORDS SUMMARY | 2019-11-04 07:08 | XMS REPORT | Continuity of Care Document ---
:1955 External Reference #:[id number] Author Name Lora Hatch O.D. Address [address] [place] [id number] Care Team Providers Name Role Phone Venita Hicks PLANER TAILER - Nurse Care Team Information Gerontological Nurse Practitioner [phone] Practitioner Problems Active Problems Provider Date Lichen planus Onset: Allergy Onset: Migraine Onset: Nuclear senile cataract Lora Hatch O.D. Onset: 08/29/2016 Knee pain Onset: Arthritis Onset: Social History Type Date Description Comments Sex Unknown ETOH Use Consumes 1-2 glasses of wine per day Recreational Drug Use Denies Drug Use Tobacco Use Start: Unknown Patient has never smoked Smoking Status Reviewed: 10/10/19 Patient has never smoked Allergies, Adverse Reactions, Alerts Active Allergies Reaction Severity Comments Date Ceclor 05/28/2016 Seasonal Moderate 10/10/2019 Medications Active Medications SIG Qnty Indications Ordering Provider Date Allergy Unknown 4mg Tablets Ibuprofen 4 tabs twice Unknown 200mg Tablets daily as needed Diclofenac Sodium apply Up To 4 Unknown 1% Gel grams To Foot four times a day if needed for pain Immunizations Description No Information Available Vital Signs Description No Information Available Results Description No Information Available Procedures Description No Information Available Medical Devices Description No Information Available Encounters Description No Information Available Assessments Date Code Description Provider 10/10/2019 H25.13 Age-related nuclear cataract, bilateral Lora Hatch O.D. 10/10/2019 H52.13 Myopia, bilateral Lora Hatch O.D. Plan of Treatment 10/10/2019 - Lora Hatch O.D.H25.13 Age-related nuclear cataract, bilateralComments:You have been diagnosed with cataracts. If you are happy with your vision as it is now, then we willsee you at your next scheduled appointment. If you feel like your vision is getting worse before your scheduled appointment, please call Crystal at [phone].Follow up:1 Year Follow Up You can expect to have your eyes dilated at your next visit. If Dr. Hatch orders any additional testing, it may require extra time. We recommend that you bring sunglasses, as dilation drops often make you light sensitive until they wear off. We always recommend you bring someone to drive you home if you are uncomfortable driving with your eyes dilated. If you have any questions before your next visit, feel free to call our office at .H52.13 Myopia, bilateralComments:You have Myopia, or near sightedness. I have given you a prescription for glasses. Functional Status Description No Information Available Mental Status Description No Information Available Referrals Description No Information Available
[2019-11-04 07:24] VITALS: BP 152/84
--- NOTE | 2019-11-04 08:03 | UC ---
Respiratory Complaint HPI - HPI Summary HPI Summary: 5 DAYS OF WORSENING COUGH, POSTNASAL DRIP, SINUS PRESSURE AND FATIGUE. HAS NOW DEVELOPED BILATERAL EAR PAIN. NO FEVER, NAUSEA/VOMITING. - History of Current Complaint Chief Complaint: UCGeneralIllness Stated Complaint: SINUS CONGESTION Time Seen by Provider: 11/04/19 07:10 Hx Obtained From: Patient Onset/Duration: Gradual Onset, Lasting Days, Still Present Timing: Constant Severity Initially: Moderate Severity Currently: Moderate Pain Intensity: 8 Pain Scale Used: 0-10 Numeric Character: Cough: Nonproductive Aggravating Factors: Nothing Alleviating Factors: Nothing Associated Signs And Symptoms: Positive: URI, Nasal Congestion, Sinus Discomfort. Negative: Dyspnea, Fever, Chills, Wheezing - Allergies/Home Medications Allergies/Adverse Reactions: Allergies Allergy/AdvReac Type Severity Reaction Status Date / Time Adhesive Tape Allergy Rash Verified 11/04/19 07:15 cefaclor [From Ceclor] Allergy Hives Verified 11/04/19 07:15 Home Medications: Home Medications ValACYclovir (*) [Valtrex 500 mg (*)] 1 tab PO DAILY 11/04/19 [History Confirmed 11/04/19] PMH/Surg Hx/FS Hx/Imm Hx Previously Healthy: Yes - Surgical History Surgical History: Yes Surgery Procedure, Year, and Place: D&C 05/2015 - Family History Known Family History: Positive: Diabetes, Other - Prostate CA, CHF - Social History Alcohol Use: Occasionally Alcohol Amount: GLASS OF WINE 3 X WEEKLY Substance Use Type: None Smoking Status (MU): Never Smoked Tobacco Have You Smoked in the Last Year: No Review of Systems All Other Systems Reviewed And Are Negative: Yes Constitutional: Positive: Fatigue ENT: Positive: Sore Throat, Ear Ache, Nasal Discharge, Sinus Congestion Respiratory: Positive: Cough Cardiovascular: Positive: Negative Gastrointestinal: Positive: Negative Physical Exam Triage Information Reviewed: Yes Appearance: Well-Appearing, No Pain Distress, Well-Nourished Vital Signs: Initial Vital Signs Temp 99.0 F 11/04/19 07:19 Pulse 84 11/04/19 07:19 Resp 16 11/04/19 07:19 BP 152/84 11/04/19 07:19 Pulse Ox 96 11/04/19 07:19 Vital Signs Reviewed: Yes Eyes: Positive: Conjunctiva Clear ENT: Positive: Hearing grossly normal, Pharynx normal, Other - LEFT TM ERYTHEMATOUS. RIGHT TM NORMAL Neck: Positive: Supple, Nontender, No Lymphadenopathy Respiratory Exam: Normal Cardiovascular Exam: Normal Abdomen Description: Positive: Soft Musculoskeletal: Positive: No Edema Neurological: Positive: Alert Psychological: Positive: Age Appropriate Behavior Skin: Negative: Rashes Respiratory Course/Dx - Course Course Of Treatment: COUNSELED PATIENT THAT HER RESPIRATORY SYMPTOMS ARE LIKELY VIRALLY MEDIATED HOWEVER SHE DOES HAVE A MILD LEFT-SIDED EAR INFECTION. IN THE ABSENCE OF ANY SYSTEMIC SYMPTOMS THIS WILL LIKELY RESOLVE ON ITS OWN HOWEVER PATIENT PREFERS TO BE ON ANTIBIOTICS AT THIS TIME. WE WILL COVER WITH AMOXICILLIN. ADVISED OTC AFRIN FOR NASAL CONGESTION. PATIENT STATES HER REACTION TO AUGMENTIN IS GI DISTRESS AND IS NOT A TRUE ALLERGY. - Differential Dx/Diagnosis Provider Diagnosis: Left otitis media, Upper respiratory infection Discharge ED - Sign-Out/Discharge Documenting (check all that apply): Patient Departure All imaging exams completed and their final reports reviewed: No Studies - Discharge Plan Condition: Stable Disposition: HOME Prescriptions: Amoxicillin PO (*) [Amoxicillin 500 MG CAP*] 1,000 mg PO Q12H #28 cap Patient Education Materials: Ear Infection (ED), Upper Respiratory Infection ( ED) Referrals: Venita Hicks NP [Primary Care Provider] - If Needed Additional Instructions: YOUR RESPIRATORY SYMPTOMS MAY BE VIRALLY MEDIATED BUT GIVEN YOUR LEFT SIDED EAR INFECTION WE WILL COVER YOU WITH ANTIBIOTICS. IF YOU START THE MEDICINE BE SURE TO TAKE IT FOR THE FULL COURSE. REST, HYDRATE, OTC MEDS NEEDED. SEEK FOLLOW- UP WITH YOUR PCP IF YOU ARE NOT IMPROVING OVER THE NEXT 1-2 WEEKS. USE OTC AFRIN FOR NASAL CONGESTION. 2 SPRAYS IN EACH NOSTRIL TWICE DAILY NEEDED. DO NOT USE FOR MORE THAN 3-4 DAYS IN A ROW TO PREVENT DEVELOPING REBOUND CONGESTION. - Billing Disposition and Condition Condition: STABLE Disposition: Home
== END 2019-11-04 08:04 | disposition home or self-care (01) ==
LOC: UCEAST 07:03
DX: H66.92 Otitis media, unspecified, left ear (principal); J06.9 Acute upper respiratory infection, unspecified; Z88.1 Allergy status to other antibiotic agents; Z91.09 Other allergy status, other than to drugs and biological substances
CPT/HCPCS: 99212; G0463